=== PATIENT | female | born 1960 | race Caucasian/White ===

== ENCOUNTER 2022-03-21 19:09 | Emergency (ER) | payer OTHER ==
[~2022-03-21] VITALS: Ht 157.5 cm; Wt 74.8 kg
--- NOTE | 2022-03-21 19:10 | NUR ---
PT BIBA AND TAKEN TO BED 10. PT CURRENTLY ON 15L NON-RB SATING AT 100%
[2022-03-21 19:15] VITALS: BP 123/106
--- NOTE | 2022-03-21 19:19 | NUR ---
PT LOWERED TO 2L VIA N/C AND SATING 100%
--- NOTE | 2022-03-21 20:00 | NUR ---
PT AT BEDSIDE
[2022-03-21] MEDS ORDERED: DEXAMETHASONE 10 MG/ML VIAL IM ONE (20:45)
[2022-03-21] MEDS ORDERED: EPIN1KIT31 IM (21:16)
--- NOTE | 2022-03-21 21:40 | NUR ---
Patient discharged with v/s stable. Written and verbal after care instructions given and explained. Patient alert, oriented and verbalized understanding of instructions. Ambulatory with steady gait. All questions addressed prior to discharge. ID band removed. Patient advised to follow up with PMD. Rx of EPINEPHRINE (EPIPEN) given. Patient educated on indication of medication including possible reaction and side effects. Opportunity to ask questions provided and answered.
[2022-03-21 21:46] VITALS: BP 118/60
== END 2022-03-21 21:40 | disposition home or self-care (01) ==
LOC: MED 19:09
DX: T78.2XXA Anaphylactic shock, unspecified, initial encounter (principal); I10 Essential (primary) hypertension
CPT/HCPCS: 96372; 99283; J1100